=== PATIENT | male | born 1985 | race Caucasian/White ===

== ENCOUNTER 2018-09-08 09:29 | Emergency (ER) | payer OTHER, MEDICAID ==
[~2018-09-08] VITALS: Ht 175.3 cm; Wt 104.0 kg
[2018-09-08] MEDS ORDERED: TETANUS, DIPHTHERIA, PERTUSSIS VAC/PF 0.5ML (>7YR OLD) IM ONE (10:15)
[2018-09-08] MEDS ORDERED: LIDOCAINE 1%/EPI 1:100,000 10 ML VIAL IJ ONE (10:15)
[2018-09-08] MEDS ORDERED: HYDROCODONE/ACETAMINOPHEN 5/325MG TABLET PO ONE (10:15)
[2018-09-08] MEDS ORDERED: ONDANSETRON 4MG ODT PO ONE (10:15)
[2018-09-08] MEDS ORDERED: BACITRACIN ZINC OINT UDPKT TOP ONE (10:15)
[2018-09-08] MEDS ORDERED: LIDOCAINE HCL/EPINEPHRINE 1%-EPI 1:100,000 30 ML VIAL INFIL ONE (11:00)
[2018-09-08] MEDS ORDERED: LIDOCAINE HCL/EPINEPHRINE 1%-EPI 1:100,000 20 ML VIAL INFIL NR (11:15)
[2018-09-08 12:50] VITALS: BP 135/82
== END 2018-09-08 13:03 | disposition home or self-care (01) ==
LOC: ER 09:29
DX: S81.011A Laceration without foreign body, right knee, initial encounter (principal); W31.89XA Contact with other specified machinery, initial encounter; Y93.89 Activity, other specified; Y92.017 Garden or yard in single-family (private) house as the place of occurrence of the external cause
CPT/HCPCS: 12002; 73700; 90471; 90715; 99284; J3490; Q0162

== ENCOUNTER 2018-09-11 13:06 | Emergency (ER) | payer OTHER, MEDICAID ==
[~2018-09-11] VITALS: Ht 175.3 cm; Wt 104.5 kg
[2018-09-11 15:20] VITALS: BP 123/81
== END 2018-09-11 15:30 | disposition home or self-care (01) ==
LOC: ER 13:06
DX: Z48.00 Encounter for change or removal of nonsurgical wound dressing (principal)
CPT/HCPCS: 99281

== ENCOUNTER 2018-09-16 10:52 | Emergency (ER) | payer OTHER, MEDICAID ==
[~2018-09-16] VITALS: Ht 175.3 cm; Wt 104.0 kg
[2018-09-16] MEDS ORDERED: LIDOCAINE HCL/EPINEPHRINE 1%-EPI 1:100,000 20 ML VIAL INFIL ONE (11:45)
[2018-09-16 13:18] VITALS: BP 130/88
== END 2018-09-16 13:20 | disposition home or self-care (01) ==
LOC: ER 10:52
DX: T81.30XD Disruption of wound, unspecified, subsequent encounter (principal)
CPT/HCPCS: 99283; J3490

== ENCOUNTER 2018-09-26 11:06 | Emergency (ER) | payer MEDICAID, OTHER ==
[~2018-09-26] VITALS: Ht 175.3 cm; Wt 109.0 kg
[2018-09-26 11:30] VITALS: BP 115/78
== END 2018-09-26 14:41 | disposition home or self-care (01) ==
LOC: ER 11:06
DX: Z48.02 Encounter for removal of sutures (principal)
CPT/HCPCS: 99282; Z7610

== ENCOUNTER 2018-10-29 17:40 | Emergency (ER) | payer OTHER, MEDICAID ==
[~2018-10-29] VITALS: Ht 170.2 cm; Wt 104.0 kg
[2018-10-29 18:04] VITALS: BP 113/65
== END 2018-10-29 18:37 | disposition home or self-care (01) ==
LOC: ER 17:40
DX: H60.92 Unspecified otitis externa, left ear (principal)
CPT/HCPCS: 99283